=== PATIENT | female | born 1995 | race Caucasian/White ===

== ENCOUNTER 2017-07-30 21:52 | Emergency (ER) | payer OTHER ==
[2017-07-30 22:09] VITALS: BP 130/58; PULSE 107; TEMP 98.4; BMI 29.0
[2017-07-31] MEDS ORDERED: diazePAM 5 MG TABLET PO ONE (00:33)
[2017-07-31] MEDS ORDERED: diazePAM 5 MG TABLET ONE (00:41)
[2017-07-31] MEDS ORDERED: KETOROLAC TROMETHAMINE 60 MG/2 ML VIAL ONE (01:00)
[2017-07-31] MEDS ORDERED: KETOROLAC TROMETHAMINE 60 MG/2 ML VIAL IM ONE (01:00)
--- NOTE | 2017-07-31 01:14 | PDOC ---
History of Present Illness - General Chief Complaint: Pain, Acute Stated Complaint: NECK PAIN Time Seen by Provider: 07/31/17 00:16 - History of Present Illness Initial Comments: 07/31/17 01:13 CHIEF COMPLAINT: neck pain HISTORY OF PRESENT ILLNESS: 22 yo F with no significant PMH presents to ED with sudden onset L sided neck pain. Patient reports "it started a little before I went to college around 6 pm and then it got really bad when I was at school, and then I couldn't move my neck because it hurts so bad." She denies any recent trauma but does report slipping and falling two years ago and had an injury to her neck at that time. Patient reports the pain is 10/10 and that she can not even get out of her wheelchair and that she cannot remove her hand from the back of her neck due to pain. No recent travel or sick contacts. PAST MEDICAL HISTORY: Denies past medical history FAMILY HISTORY: Denies SOCIAL HISTORY: Denies tobacco, alcohol, illicit drug use. SURGICAL HISTORY: Denies ALLERGIES: No known drug allergies REVIEW OF SYSTEMS General/Constitutional: Denies fever or chills. Denies weakness, weight change. HEENT: Denies change in vision. Denies ear pain or discharge. Denies sore throat. Cardiovascular: Denies chest pain or shortness of breath. Respiratory: Denies cough, wheezing, or hemoptysis. Gastrointestinal: Denies nausea, vomiting, diarrhea or constipation. Denies rectal bleeding. Genitourinary: Denies dysuria, frequency, or change in urination. Musculoskeletal: Neck pain. Denies joint or muscle swelling or pain. Denies neck or back pain. Skin and breasts: Denies rash or easy bruising. Neurologic: Denies headache, vertigo, loss of consciousness, or loss of sensation. PHYSICAL EXAM General Appearance: Tearful, uncomfortable appearing. HEENT: EOMI, PERRLA, normal ENT inspection, normal voice, TMs normal, pharynx normal. No conjunctival pallor. No photophobia, scleral icterus. Neck: Patient with head tilted to R side secondary to pain to left posterior neck. Patient with limited ROM to neck secondary to pain. Trachea midline. Respiratory/Chest: Lungs CTAB. Cardiovascular: RRR. S1, S2. Gastrointestinal/Abdominal: Normal bowel sounds. Abdomen soft, non-distended. No tenderness or rebound tenderness. No organomegaly, pulsatile mass, guarding , hernia, hepatomegaly, splenomegaly. Musculoskeletal/Extremities: Normal inspection. FROM of all extremities, normal capillary refill. Pelvis Stable. No CVA tenderness. No tenderness to extremities, pedal edema, swelling, erythema or deformity. Integumentary: Appropriate color, dry, warm. No cyanosis, erythema, jaundice or rash Neurologic: microbiological lab technician II-XII intact. Fully oriented, alert. Appropriate mood/affect. Motor strength 5/5. No appreciable EOM palsy, facial droop or sensory deficit. Past History - Past Medical History Allergies/Adverse Reactions: Allergies Allergy/AdvReac Type Severity Reaction Status Date / Time No Known Allergies Allergy Verified 07/30/17 22:10 Home Medications: Ambulatory Orders Cyclobenzaprine HCl 7.5 mg PO TID PRN #15 tablet 07/31/17 Diclofenac Sodium [Voltaren -] 50 mg PO BID #14 tablet. 07/31/17 COPD: No Other medical history: neck injury with right arm weakness. - Suicide/Smoking/Psychosocial Hx Smoking History: Never smoked *Physical Exam - Vital Signs Last Vital Signs Temp Pulse Resp BP Pulse Ox 98.4 F 107 H 20 130/58 100 07/30/17 22:07 07/30/17 22:07 07/30/17 22:07 07/30/17 22:07 07/30/17 22:07 ED Treatment Course - LABORATORY CBC & Chemistry Diagram: 07/31/17 02:20 07/31/17 02:20 - Medications Given in the ED: ED Medications Discontinued Medications Generic Name Dose Route Start Last Admin Trade Name Freq PRN Reason Stop Dose Admin Diazepam 10 mg 07/31/17 00:33 07/31/17 00:40 Valium - PO 07/31/17 00:34 10 mg ONCE ONE Administration Medical Decision Making - Medical Decision Making 07/31/17 01:16 22 yo F with no significant PMH presents to ED with sudden onset L sided neck pain. -Toradol, Valium *DC/Admit/Observation/Transfer Diagnosis at time of Disposition: Neck pain on left side - Discharge Dispostion Disposition: HOME Condition at time of disposition: Stable Admit: No - Prescriptions Prescriptions: Cyclobenzaprine HCl 7.5 mg PO TID PRN #15 tablet PRN Reason: Muscle Spasms Diclofenac Sodium [Voltaren -] 50 mg PO BID #14 tablet.dr - Referrals Referrals: Stephen Todd MD [Primary Care Provider] - Srinivasan Serra MD [Staff Physician] - Watson Craven MD [Staff Physician] - - Patient Instructions Printed Discharge Instructions: DI for Neck Sprain Additional Instructions: Please take medications as prescribed. Do NOT drink alcohol, drive, or operate machinery while taking cyclobenzaprine. Follow up with neurology and orthopedics by the end of this week. If you develop any new pain, weakness, change in vision, or any new or worsening symptoms, please return to the ER. - Post Discharge Activity Forms/Work/School Notes: Back to Work
[2017-07-31] MEDS ORDERED: morphine CARPU-JECT 2 MG/1 ML DISP.SYRIN IVPUSH ONE (02:34)
[2017-07-31] MEDS ORDERED: SODIUM CHLORIDE 0.9% 500 ML INFUS.BAG IV ONE (02:35)
[2017-07-31 02:54] LABS: BASO % 0.8 % (0-2.0); EOS % 0.6 % (0-4.5); HEMATOCRIT 40.6 % (32.4-45.2); HEMOGLOBIN 13.9 GM/dL (10.7-15.3); LYMPH % 18.2 % (8-40); MCH 28.9 pg (25.7-33.7); MCHC 34.1 g/dl (32.0-36.0); MEAN CELL VOLUME 84.7 fl (80-96); MEAN PLT VOLUME 8.3 fl (7.5-11.1); MONO % 7.5 % (3.8-10.2); NEUT % 72.9 % (42.8-82.8); PLATELET COUNT 206 K/MM3 (134-434); RDW 13.1 % (11.6-15.6); WHITE BLOOD COUNT 9.7 K/mm3 (4.0-10.0)
[2017-07-31] MEDS ORDERED: MORPHINE SULFATE 10 MG/1 ML *VIAL ONE (02:55)
[2017-07-31 03:21] LABS: ALBUMIN 4.1 g/dl (3.4-5.0); ANION GAP 11 (8-16); BILIRUBIN,TOTAL 0.4 mg/dL (0.2-1.0); BLOOD UREA NITROGEN 10 mg/dL (7-18); CALCIUM 9.5 mg/dL (8.5-10.1); CHLORIDE 100 mmol/L (98-107); CO2 27 mmol/L (21-32); CREATININE 0.7 mg/dL (0.55-1.02); GLUCOSE,RANDOM 87 mg/dL (74-106); POTASSIUM 3.9 mmol/L (3.5-5.1); SGOT/AST 22 U/L (15-37); SGPT/ALT 33 U/L (12-78); SODIUM 138 mmol/L (136-145); TOT PROT 7.7 g/dl (6.4-8.2)
[2017-07-31 03:22] LABS: ALK PHOS 67 U/L (45-117)
== END 2017-07-31 05:01 | disposition home or self-care (01) ==
LOC: JER 21:52
PROC: 3E0233Z Introduction of Anti-inflammatory into Muscle, Percutaneous Approach (ICD-10-PCS; principal; 2017-07-30)
PROC: 3E033NZ Introduction of Analgesics, Hypnotics, Sedatives into Peripheral Vein, Percutaneous Approach (ICD-10-PCS; 2017-07-30)
DX: S19.89XA Other specified injuries of other specified part of neck, initial encounter (principal); W19.XXXA Unspecified fall, initial encounter; Y93.89 Activity, other specified; Y92.89 Other specified places as the place of occurrence of the external cause
CPT/HCPCS: 36415; 80053; 84703; 85025; 99281-25

== ENCOUNTER 2017-12-19 18:13 | Emergency (ER) | payer OTHER ==
[2017-12-19 18:31] VITALS: BP 122/86; PULSE 95; TEMP 97.4; BMI 32.6
--- NOTE | 2017-12-19 18:31 | PDOC ---
Rapid Medical Evaluation Time Seen by Provider: 12/19/17 18:28 Medical Evaluation: Allergies Allergy/AdvReac Type Severity Reaction Status Date / Time No Known Allergies Allergy Verified 07/30/17 22:10 12/19/17 18:28 I have performed a brief in-person evaluation of this patient . The patient presents with a chief complaint of: ?abscess to L axilla x 3 weeks. Seen pmd 2 weeks ago and was given 1 dose of "abx" in office and no rx per pt. No I&D done. H/o hypothyroid, on meds Pertinent physical exam findings:2x1cm induration to L axilla, ?fluctuant, no erythema I have ordered the following:nothing The patient will proceed to the ED for further evaluation. Discharge Disposition - Diagnosis Axillary mass Qualifiers: Laterality: left Qualified Code(s): R22.32 - Localized swelling, mass and lump , left upper limb - Referrals - Patient Instructions - Post Discharge Activity
[2017-12-19] MEDS ORDERED: LIDOCAINE HCL 1%, 10 MG/ML (50 mL VIAL) SQ ONE (18:55)
--- NOTE | 2017-12-19 18:57 | PDOC ---
History of Present Illness - General Chief Complaint: Abscess Boil Stated Complaint: CYST Time Seen by Provider: 12/19/17 18:28 - History of Present Illness Initial Comments: 22-year-old female with past medical history significant for hypothyroidism presents for evaluation of a painful tender area under her left axilla. She states she's been there for weeks but got worse today. Her associated symptoms besides localized pain to the area. 12/19/17 18:55 Past History - Past Medical History Allergies/Adverse Reactions: Allergies Allergy/AdvReac Type Severity Reaction Status Date / Time No Known Allergies Allergy Verified 12/19/17 18:28 Home Medications: Ambulatory Orders Cephalexin [Keflex] 500 mg PO QID #40 capsule 12/19/17 Cephalexin [Keflex] 500 mg PO QID #40 capsule 12/19/17 Cephalexin [Keflex] 500 mg PO QID #40 capsule 12/19/17 Ibuprofen [Motrin -] 600 mg PO TID #30 tablet 12/19/17 Ibuprofen [Motrin -] 600 mg PO TID #30 tablet 12/19/17 Levothyroxine [Synthroid -] 50 mcg PO DAILY 12/19/17 Sulfamethoxazole/Trimethoprim [Bactrim Ds -] 1 tab PO BID #14 tablet 12/19/17 Sulfamethoxazole/Trimethoprim [Bactrim Ds -] 1 tab PO BID #14 tablet 12/19/17 Sulfamethoxazole/Trimethoprim [Bactrim Ds -] 1 tab PO BID #14 tablet 12/19/17 COPD: No Thyroid Disease: Yes (HYPOTHYROID) - Suicide/Smoking/Psychosocial Hx Smoking History: Never smoked Review of Systems - Review of Systems Integumentary: Yes: See HPI, Lumps All Other Systems: Reviewed and Negative *Physical Exam - Vital Signs Last Vital Signs Temp Pulse Resp BP Pulse Ox 97.4 F L 95 H 17 122/86 99 12/19/17 18:29 12/19/17 18:29 12/19/17 18:29 12/19/17 18:29 12/19/17 18:29 - Physical Exam Comments: There is a mildly erythematous tender indurated and fluctuant area on the left axilla about 1 cm in circumference. The surrounding skin is otherwise normal color and temperature. Upper Neal compartments are soft and nontender and there are no gross sensory or motor deficits. 12/19/17 18:56 Medical Decision Making - Medical Decision Making Chest left axilla which I will I&D today. 12/19/17 18:57 12/19/17 19:29 The area was aseptically prepped and anesthetized with 15-20 mL of 1% lidocaine without epinephrine. The area was then prepped again sterilely draped over 1 cm incision was made in the axilla culture was taken purulent areas were deloculated and the area was packed with quarter-inch iodoform a dry sterile dressing was placed. This was tolerated well without complication *DC/Admit/Observation/Transfer Diagnosis at time of Disposition: Abscess Axillary mass Qualifiers: Laterality: left Qualified Code(s): R22.32 - Localized swelling, mass and lump , left upper limb - Discharge Dispostion Disposition: HOME Condition at time of disposition: Stable Decision to Admit order: No - Prescriptions Prescriptions: Cephalexin [Keflex] 500 mg PO QID #40 capsule Sulfamethoxazole/Trimethoprim [Bactrim Ds -] 1 tab PO BID #14 tablet - Referrals Referrals: Brodie Cowart MD [Primary Care Provider] - - Patient Instructions Printed Discharge Instructions: DI for Incision and Drainage of a Skin Abscess Additional Instructions: Return to the emergency room in 2 days for packing removal and wound check. In the meantime keep the area clean and dry for 48 hours do not take a shower. Take the antibiotics as directed. I've also called given some pain medication which should help with her discomfort. Return to the emergency sooner should problems develop. - Post Discharge Activity
[2017-12-19] MEDS ORDERED: LIDOCAINE HCL 1%, 10 MG/ML (20ML VIAL) ONE (19:05)
== END 2017-12-19 19:34 | disposition home or self-care (01) ==
LOC: JERFT 18:13
PROC: 0X950ZZ Drainage of Left Axilla, Open Approach (ICD-10-PCS; principal; 2017-12-19)
DX: L02.412 Cutaneous abscess of left axilla (principal)
CPT/HCPCS: 10060; 87070; 87205; 99281-25

== ENCOUNTER 2017-12-21 16:19 | Emergency (ER) | payer OTHER ==
[2017-12-21 16:31] VITALS: BP 132/76; PULSE 86; TEMP 98.7; BMI 32.6
--- NOTE | 2017-12-21 17:04 | PDOC ---
History of Present Illness - General Chief Complaint: Revisit,Wound Recheck Stated Complaint: REVIST Time Seen by Provider: 12/21/17 16:38 - History of Present Illness Initial Comments: 22-year-old female presents for evaluation after I&D of an abscess in the left axilla. She's had no symptoms except localized pain. 12/21/17 17:02 Past History - Past Medical History Allergies/Adverse Reactions: Allergies Allergy/AdvReac Type Severity Reaction Status Date / Time No Known Allergies Allergy Verified 12/21/17 16:31 Home Medications: Ambulatory Orders Cephalexin [Keflex] 500 mg PO QID #40 capsule 12/19/17 Ibuprofen [Motrin -] 600 mg PO TID #30 tablet 12/19/17 Levothyroxine [Synthroid -] 50 mcg PO DAILY 12/19/17 Sulfamethoxazole/Trimethoprim [Bactrim Ds -] 1 tab PO BID #14 tablet 12/19/17 COPD: No Thyroid Disease: Yes (HYPOTHYROID) - Suicide/Smoking/Psychosocial Hx Smoking History: Never smoked Have you smoked in the past 12 months: No Information on smoking cessation initiated: No Hx Alcohol Use: No Drug/Substance Use Hx: No Review of Systems - Review of Systems Integumentary: Yes: See HPI All Other Systems: Reviewed and Negative *Physical Exam - Vital Signs Last Vital Signs Temp Pulse Resp BP Pulse Ox 98.7 F 86 18 132/76 100 12/21/17 16:28 12/21/17 16:28 12/21/17 16:28 12/21/17 16:28 12/21/17 16:28 - Physical Exam Comments: The abscess is not fluctuant anymore the incision is clean and dry. The packing was removed. There is no purulence the visualized incision. Wet-to-dry dressing was placed. This was tolerated well. 12/21/17 17:02 *DC/Admit/Observation/Transfer Diagnosis at time of Disposition: Abscess packing removal - Discharge Dispostion Disposition: HOME Condition at time of disposition: Stable Decision to Admit order: No - Referrals Referrals: Brodie Cowart MD [Primary Care Provider] - - Patient Instructions Additional Instructions: Return to the emergency room should he develop any fever chills or night sweats. Continue taking the antibiotics as directed. As shown today in the emergency room, you should do wet-to-dry dressing changes twice a day. I will see within 2 days for wound check. - Post Discharge Activity
== END 2017-12-21 17:16 | disposition home or self-care (01) ==
LOC: JERFT 16:19
DX: Z48.817 Encounter for surgical aftercare following surgery on the skin and subcutaneous tissue (principal); Z48.01 Encounter for change or removal of surgical wound dressing
CPT/HCPCS: 99281-25

== ENCOUNTER 2017-12-24 15:57 | Emergency (ER) | payer OTHER ==
--- NOTE | 2017-12-24 16:03 | PDOC ---
Rapid Medical Evaluation Time Seen by Provider: 12/24/17 16:02 Medical Evaluation: Allergies Allergy/AdvReac Type Severity Reaction Status Date / Time No Known Allergies Allergy Verified 12/21/17 16:31 I have performed a brief in-person evaluation of this patient. The patient presents with a chief complaint of: wound check left axilla Pertinent physical exam findings: none I have ordered the following: nothing The patient will proceed to the ED for further evaluation. Discharge Disposition - Diagnosis Wound check, abscess - Referrals - Patient Instructions - Post Discharge Activity
[2017-12-24 16:05] VITALS: BP 114/79; PULSE 88; TEMP 98.3; BMI 32.6
--- NOTE | 2017-12-24 16:32 | PDOC ---
History of Present Illness - General Chief Complaint: Revisit,Wound Recheck Stated Complaint: WOUND CHECK REVISIT Time Seen by Provider: 12/24/17 16:02 - History of Present Illness Initial Comments: 12/24/17 16:31 12/24/17 16:36 22-year-old female presents for reevaluation of left axilla abscess I&D which was done last week this is her second wound check she's had no complaints except localized soreness. No other associated symptoms. She continues take her antibiotics. Past History - Past Medical History Allergies/Adverse Reactions: Allergies Allergy/AdvReac Type Severity Reaction Status Date / Time No Known Allergies Allergy Verified 12/24/17 16:02 Home Medications: Ambulatory Orders Cephalexin [Keflex] 500 mg PO QID #40 capsule 12/19/17 Ibuprofen [Motrin -] 600 mg PO TID #30 tablet 12/19/17 Levothyroxine [Synthroid -] 50 mcg PO DAILY 12/19/17 Sulfamethoxazole/Trimethoprim [Bactrim Ds -] 1 tab PO BID #14 tablet 12/19/17 Asthma: Yes COPD: No DVT: No Thyroid Disease: Yes (HYPOTHYROID) - Suicide/Smoking/Psychosocial Hx Smoking History: Never smoked Have you smoked in the past 12 months: No Information on smoking cessation initiated: No Hx Alcohol Use: No Drug/Substance Use Hx: No Substance Use Type: None Review of Systems - Review of Systems All Other Systems: Reviewed and Negative *Physical Exam - Vital Signs Last Vital Signs Temp Pulse Resp BP Pulse Ox 98.3 F 88 18 114/79 100 12/24/17 16:03 12/24/17 16:03 12/24/17 16:03 12/24/17 16:03 12/24/17 16:03 - Physical Exam Comments: 12/24/17 16:31 12/24/17 16:32 12/24/17 16:37 Left axilla normal skin color and temperature there is some mild ecchymosis around the area of the abscess. The wound is now closed. And looks very well. Medical Decision Making - Medical Decision Making No further wound management is necessary at this time. 12/24/17 16:31 12/24/17 16:37 *DC/Admit/Observation/Transfer Diagnosis at time of Disposition: Wound check, abscess - Discharge Dispostion Disposition: HOME Condition at time of disposition: Stable Decision to Admit order: No - Referrals Referrals: Brodie Cowart MD [Primary Care Provider] - - Patient Instructions Additional Instructions: Return to the emergency room should her abscess return. In the meantime keep clean with soap and water. Do not shave the area until the back and blue goes away. Continue the antibiotics as directed and finish the entire course. - Post Discharge Activity
== END 2017-12-24 16:44 | disposition home or self-care (01) ==
LOC: JERFT 15:57
DX: Z48.817 Encounter for surgical aftercare following surgery on the skin and subcutaneous tissue (principal)
CPT/HCPCS: 99281-25

== ENCOUNTER 2018-11-07 10:41 | Emergency (ER) | payer OTHER | END 2018-11-07 11:29 | disposition home or self-care (01) | LOC: JER 10:41 ==

== ENCOUNTER 2018-11-09 09:49 | Emergency (ER) | payer OTHER ==
[2018-11-09 10:04] VITALS: BP 121/72; PULSE 86; TEMP 98.5; BMI 67.0
--- NOTE | 2018-11-09 11:57 | PDOC ---
*Physical Exam - Vital Signs Last Vital Signs Temp Pulse Resp BP Pulse Ox 98.5 F 86 18 121/72 100 11/09/18 10:01 11/09/18 10:01 11/09/18 10:01 11/09/18 10:01 11/09/18 10:01 Medical Decision Making - Medical Decision Making 11/09/18 11:57 Pt seen by the Advanced Practice Provider under my direct supervision Ancillary studies reviewed I agree with plan as outlined by the Advanced Practice Provider JUANY Garcia *DC/Admit/Observation/Transfer Diagnosis at time of Disposition: Abscess, Headache - Discharge Dispostion Disposition: HOME Condition at time of disposition: Stable - Referrals Referrals: Brodie Cowart MD [Primary Care Provider] - - Patient Instructions Printed Discharge Instructions: DI for Incision and Drainage of a Skin Abscess Additional Instructions: You have an abscess and cellulitis. This is a skin infection. Your abscess was drained today Please continue to take the Bactrim and Keflex twice a day for one week. Please take all the antibiotics even if you feel better. Please avoid shaving the skin around the area of redness. You may take Tylenol or Motrin as needed for pain. Follow the dosing instruction on the bottle Return to the ER in two days to have the packing removed Your head CT is normal You are most likely having a concussion. Follow up with your primary care doctor this week Return to the emergency department if you have worsening redness, fevers, increasing pain, or have any changes in your symptoms. - Post Discharge Activity Forms/Work/School Notes: Back to Work
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
== END 2018-11-09 15:39 | disposition home or self-care (01) ==
LOC: JER 09:49
PROC: 0X950ZZ Drainage of Left Axilla, Open Approach (ICD-10-PCS; principal; 2018-11-09)
DX: L02.412 Cutaneous abscess of left axilla (principal); E03.9 Hypothyroidism, unspecified; Z87.09 Personal history of other diseases of the respiratory system
CPT/HCPCS: 10060; 70450-TC; 84703; 87070; 87205; 99282-25

== ENCOUNTER 2018-11-11 15:07 | Emergency (ER) | payer OTHER | END 2018-11-11 16:51 | disposition home or self-care (01) | LOC: JERFT 15:07 ==

== ENCOUNTER 2018-12-25 18:00 | Emergency (ER) | payer OTHER ==
[2018-12-25 18:11] VITALS: BP 132/88; PULSE 81; TEMP 98; BMI 28.8
--- NOTE | 2018-12-25 18:12 | PDOC ---
Rapid Medical Evaluation Medical Evaluation: Allergies Allergy/AdvReac Type Severity Reaction Status Date / Time No Known Allergies Allergy Verified 12/25/18 18:08 12/25/18 18:09 I have performed a brief in-person evaluation of this patient. The patient presents with a chief complaint of: abscess to L axilla, recurrent Pertinent physical exam findings:stable, defer to ED provider I have ordered the following:nothing The patient will proceed to the ED for further evaluation. Discharge Disposition - Diagnosis Axillary abscess - Referrals - Patient Instructions - Post Discharge Activity
--- NOTE | 2018-12-25 18:37 | PDOC ---
History of Present Illness - General Chief Complaint: Abscess Boil Stated Complaint: BOIL/ABSCESS Time Seen by Provider: 12/25/18 18:09 History Source: Patient - History of Present Illness Initial Comments: 12/25/18 18:34 Chief complaint: Axilla pain, discharge Patient is a 23-year-old female with history of recurrent axillary abscess, last treated in November. Patient states that she's been having pain, discharge from her left axilla for 2 weeks, no fever, has not been able to see a surgeon due to her work schedule. GENERAL/CONSTITUTIONAL: No fever, weakness. dizziness HEAD, EYES, EARS, NOSE AND THROAT: No change in vision. No ear pain or discharge. No sore throat. CARDIOVASCULAR: No chest pain RESPIRATORY: No shortness of breath or cough GASTROINTESTINAL: No pain, nausea, vomiting, diarrhea or constipation GENITOURINARY: No dysuria MUSCULOSKELETAL: No neck or back pain SKIN: No rash NEUROLOGIC: No headache, vertigo, loss of consciousness, or loss of sensation. GENERAL: The patient is awake, alert, and fully oriented, in no acute distress. HEAD: Normal with no signs of trauma. EYES: Pupils equal, round and reactive to light, sclera anicteric, conjunctiva clear. ENT: pharynx: no erythema, no exudate, uvula midline NECK: supple CHEST: clear, nontender, rr ABD: soft, nontender BACK: no tenderness or signs of injury EXTREMITIES: Axilla, with minimal erythema, small amount of drainage, no palpable abscess, swelling or fluctuant area. Most full range of motion, somewhat limited by discomfort, neurovascular intact. rest of extremities, Normal range of motion, no edema. NEUROLOGICAL: Normal speech, normal gait. SKIN: Warm, Dry 12/25/18 18:47 Past History - Past Medical History Allergies/Adverse Reactions: Allergies Allergy/AdvReac Type Severity Reaction Status Date / Time No Known Allergies Allergy Verified 12/25/18 18:08 Home Medications: Ambulatory Orders Cephalexin [Keflex] 500 mg PO BID 7 Days #14 capsule 11/07/18 Ibuprofen 800 mg PO Q8H PRN #20 tablet 11/07/18 Mupirocin Ointment [Bactroban 2% Ointment -] 1 applic TP BID #1 tube 11/07/18 Sulfamethoxazole/Trimethoprim [Bactrim Ds -] 1 tab PO BID #14 tablet 11/07/18 Levothyroxine [Synthroid -] 50 mcg PO DAILY 11/09/18 Cephalexin [Keflex] 1,000 mg PO BID #28 capsule 12/25/18 Sulfamethoxazole/Trimethoprim [Bactrim Ds Tablet] 1 each PO BID #14 tablet 12/25 Asthma: Yes COPD: No DVT: No Thyroid Disease: Yes (HYPOTHYROID) - Immunization History Immunization Up to Date: No - Suicide/Smoking/Psychosocial Hx Smoking History: Never smoked Have you smoked in the past 12 months: No Hx Alcohol Use: No Drug/Substance Use Hx: No Substance Use Type: None *Physical Exam - Vital Signs Last Vital Signs Temp Pulse Resp BP Pulse Ox 98.0 F 81 18 132/88 99 12/25/18 18:09 12/25/18 18:09 12/25/18 18:09 12/25/18 18:09 12/25/18 18:09 Medical Decision Making - Medical Decision Making 12/25/18 18:40 Healthy 23-year-old female with recurrent abscesses under left axilla, last seen in November, EMR, microbiology, no sensitivities found, patient got better last time has not had time to follow up with surgeon. No abscess to drain , patient has small amount of drainage from opening, mild cellulitis. Will put on Keflex and Bactrim, encouraged patient to follow up with surgeon. Discussed issues, findings, results, applicable medications and treatments and follow-up. All these were understood and all questions were answered *DC/Admit/Observation/Transfer Diagnosis at time of Disposition: Cellulitis and abscess of upper extremity - Discharge Dispostion Disposition: HOME Condition at time of disposition: Stable Decision to Admit order: No - Prescriptions Prescriptions: Cephalexin [Keflex] 1,000 mg PO BID #28 capsule Sulfamethoxazole/Trimethoprim [Bactrim Ds Tablet] 1 each PO BID #14 tablet - Referrals Referrals: Hany Sandhu MD [Staff Physician] - - Patient Instructions Additional Instructions: Clean with soap and water 2-3 times daily, apply bacitracin and dressing Take Keflex and Bactrim as prescribed Take acidophilus to prevent stomach upset and yeast infection Have her reevaluated if redness, pus, fever or getting worse it is very important for you to follow-up with the surgeon as this will keep re- occurring. Return to the ER if you find that you develop worse swelling in that area - Post Discharge Activity
== END 2018-12-25 18:51 | disposition home or self-care (01) ==
LOC: JERFT 18:00
DX: L02.412 Cutaneous abscess of left axilla (principal); E03.9 Hypothyroidism, unspecified
CPT/HCPCS: 99281-25

== ENCOUNTER 2019-03-23 10:40 | Emergency (ER) | payer OTHER ==
[2019-03-23 11:20] VITALS: BP 105/65; PULSE 72; TEMP 98.4; BMI 31.1
[2019-03-23] MEDS ORDERED: hydrOXYzine PAMOATE 25 MG CAPSULE (FP) PO ONE (13:28)
[2019-03-23] MEDS ORDERED: LEVOTHYROXINE NA 50 MCG TABLET (FP) PO ONE (13:57)
--- NOTE | 2019-03-23 13:57 | PDOC ---
History of Present Illness - General Chief Complaint: Weakness Stated Complaint: CHEST PAIN/ SOB Time Seen by Provider: 03/23/19 12:51 History Source: Patient Exam Limitations: Clinical Condition - History of Present Illness Initial Comments: 03/23/19 14:07pm Patient with past medical history of anxiety, hypothyroidism noncompliant with head central medication for a month now, presented with complaint of shortness of breath, chest tightness radiating up her left side of neck, irregular heartbeat. Patient not on medication for anxiety. Patient reports symptoms started this morning when she went to work. Denies dizziness, headache, nausea , vomiting. Patient reports she has not been taking her Synthroid medication for a month now because she ran out. Denies any other symptoms Is this a multiple visit Asthma Patient?: No Timing/Duration: 4-6 hours Past History - Past Medical History Allergies/Adverse Reactions: Allergies Allergy/AdvReac Type Severity Reaction Status Date / Time No Known Allergies Allergy Verified 03/23/19 11:21 Home Medications: Ambulatory Orders Cephalexin [Keflex] 500 mg PO BID 7 Days #14 capsule 11/07/18 Ibuprofen 800 mg PO Q8H PRN #20 tablet 11/07/18 Mupirocin Ointment [Bactroban 2% Ointment -] 1 applic TP BID #1 tube 11/07/18 Sulfamethoxazole/Trimethoprim [Bactrim Ds -] 1 tab PO BID #14 tablet 11/07/18 Levothyroxine [Synthroid -] 50 mcg PO DAILY 11/09/18 Cephalexin [Keflex] 1,000 mg PO BID #28 capsule 12/25/18 Sulfamethoxazole/Trimethoprim [Bactrim Ds Tablet] 1 each PO BID #14 tablet 12/25 Asthma: Yes CVA: Yes COPD: No DVT: No Thyroid Disease: Yes (HYPOTHYROID) - Immunization History Immunization Up to Date: No - Psycho Social/Smoking Cessation Hx Smoking History: Never smoked Have you smoked in the past 12 months: No Hx Alcohol Use: No Drug/Substance Use Hx: No Substance Use Type: None Review of Systems - Review of Systems Able to Perform ROS?: Yes Is the patient limited Greek proficient: No Constitutional: No: Fever, Malaise, Weakness HEENTM: No: Symptoms Reported, See HPI, Eye Pain, Blurred Vision, Tearing, Recent change in vision, Double Vision, Cataracts, Ear Pain, Ocular Prothesis, Ear Discharge, Nose Pain, Nose Congestion, Tinnitus, Nose Bleeding, Hearing Loss , Throat Pain, Throat Swelling, Mouth Pain, Dental Problems, Difficulty Swallowing, Mouth Swelling, Other Respiratory: Yes: Symptoms reported, See HPI, Cough. No: Orthopnea, Shortness of Breath, SOB with Exertion, SOB at Rest, Stridor, Wheezing, Productive cough, Hemoptysis, Other Cardiac (ROS): Yes: Symptoms Reported, See HPI, Irregular Heart Rate. No: Chest Pain, Edema, Lightheadedness, Palpitations, Syncope, Chest Tightness, Other ABD/GI: No: Nausea, Vomiting Musculoskeletal: No: Symptoms Reported Integumentary: No: Symptoms Reported Neurological: No: Symptoms reported, Headache, Numbness, Tingling, Weakness, Dizziness All Other Systems: Reviewed and Negative *Physical Exam - Vital Signs Last Vital Signs Temp Pulse Resp BP Pulse Ox 98.4 F 72 18 105/65 100 03/23/19 11:15 03/23/19 11:15 03/23/19 11:15 03/23/19 11:15 03/23/19 11:15 - Physical Exam Comments: 03/23/19 13:56 GENERAL: Well developed, well nourished. Awake and alert. No acute distress. HEENT: Normocephalic, atraumatic. PERRLA, EOMI. No conjunctival pallor. Sclera are non- icteric. Moist mucous membranes. Oropharynx is clear. NECK: Supple. Full ROM. No JVD. Carotid pulses 2+ and symmetric, without bruits. No thyromegaly. No lymphadenopathy. CARDIOVASCULAR: Regular rate and rhythm. No murmurs, rubs, or gallops. Distal pulses are 2+ and symmetric. PULMONARY: No evidence of respiratory distress. Lungs clear to auscultation bilaterally. No wheezing, rales or rhonchi. ABDOMINAL: Soft. Non-tender. Non-distended. No rebound or guarding. No organomegaly. Normoactive bowel sounds. MUSCULOSKELETAL Normal range of motion at all joints. No bony deformities or tenderness. No CVA tenderness. EXTREMITIES: No cyanosis. No clubbing. No edema. No calf tenderness. SKIN: Warm and dry. Normal capillary refill. No rashes. No jaundice. NEUROLOGICAL: Alert, awake, appropriate. Cranial nerves 2-12 intact. No deficits to light touch in face, upper extremities and lower extremities. No motor deficits in the in face, upper extremities and lower extremities. Normal speech. Gait is normal without ataxia. PSYCHIATRIC: Cooperative. Good eye contact. Appropriate mood and affect. General Appearance: Yes: Nourished, Appropriately Dressed. No: Apparent Distress ED Treatment Course - LABORATORY CBC & Chemistry Diagram: 03/23/19 13:30 03/23/19 13:30 - RADIOLOGY Radiology Studies Ordered: Category Date Time Status CHEST PA & LAT [RAD] Stat Radiology 03/23/19 13:23 Ordered Medical Decision Making - Medical Decision Making 03/23/19 14:08 Patient with past medical history of anxiety, hypothyroidism noncompliant with head central medication for a month now, presented with complaint of shortness of breath, chest tightness radiating up her left side of neck, irregular heartbeat. Patient not on medication for anxiety. Patient reports symptoms started this morning when she went to work. Denies dizziness, headache, nausea , vomiting. Patient reports she has not been taking her Synthroid medication for a month now because she ran out. Denies any other symptoms Clinical exam unremarkable with normal myocardial lung exam. Symptoms likely anxiety versus symptoms from hypothyroidism versus less likely cardiogenic symptoms. CBC, CMP and cardiac profile lab ordered. EKG shows normal sinus rhythm. Checks x-ray ordered to rule out acute chest pathology. Thyroid profile labs ordered. 1 dose of Vistaril 25 mg p.o. ordered for anxiety and home Synthroid medication 50 mg p.o. ordered for hypothyroidism. Treat based on lab and imaging results 03/23/19 16:05 CBC, CMP labs unremarkable. cardiac profile negative. hcg negative. Patient walked out while waiting to get chest x-rays and could not be located. Discharge - Discharge Information Problems reviewed: Yes Clinical Impression/Diagnosis: Anxiety, Chest pain in adult Condition: Stable Disposition: ELOPED - Admission No - Follow up/Referral Referrals: Brodie Cowart MD [Primary Care Provider] - - Patient Discharge Instructions - Post Discharge Activity
[2019-03-23 13:59] LABS: BASO % 0.3 % (0-2.0); EOS % 0.9 % (0-4.5); HEMATOCRIT 40.1 % (32.4-45.2); HEMOGLOBIN 13.6 GM/dL (10.7-15.3); LYMPH % 20.5 % (8-40); MCHC 33.9 g/dl (32.0-36.0); MEAN CELL VOLUME 85.6 fl (80-96); MEAN PLT VOLUME 8.3 fl (7.5-11.1); MONO % 6.3 % (3.8-10.2); PLATELET COUNT 196 K/MM3 (134-434); RBC 4.69 M/mm3 (3.60-5.2); RDW 13.3 % (11.6-15.6); WHITE BLOOD COUNT 6.8 K/mm3 (4.0-10.0)
[2019-03-23 14:20] LABS: EPI CELLS 7.7 /HPF (0-5/HPF); HYALINE CASTS 12 /lpf (0-8); PH,URINE 5.5 (5.0-8.0); URINE APPEARANCE CLOUDY; URINE BACTERIA 558.9 /hpf (NEGATIVE); URINE BILIRUBIN NEGATIVE (NEGATIVE); URINE COLOR ORANGE; URINE GLUCOSE (UA) NEGATIVE (NEGATIVE); URINE KETONE NEGATIVE (NEGATIVE); URINE LEUK ESTERASE 2+ (NEGATIVE); URINE NITRITE NEGATIVE (NEGATIVE); URINE PROTEIN 1+ (NEGATIVE); URINE RBC 512 /hpf (0-4); URINE UROBILINOGEN 0.2 mg/dL (0.2-1.0); URINE WBC 72 /hpf (0-5)
[2019-03-23 14:29] LABS: ALBUMIN 4.3 g/dl (3.4-5.0); BILIRUBIN,TOTAL 0.4 mg/dL (0.2-1); CALCIUM 9.4 mg/dL (8.5-10.1); CREATININE 0.7 mg/dL (0.55-1.3); POTASSIUM 3.9 mmol/L (3.5-5.1); TOT PROT 8.2 g/dl (6.4-8.2)
[2019-03-23 14:40] LABS: COCAINE, UR NEGATIVE ng/ml (CUTOFF=300); METHADONE, UR NEGATIVE ng/ml (CUTOFF=300); OPIATES, URI NEGATIVE ng/ml (CUTOFF=300); PHENCYCLIDINE,URINE NEGATIVE ng/ml (CUTOFF=25); URINE AMPHETAMINES NEGATIVE ng/ml (CUTOFF=500); URINE BARBITURATES NEGATIVE ng/ml (CUTOFF=200); URINE BENZODIAZEPINES NEGATIVE ng/ml (CUTOFF=200)
[2019-03-23] MEDS ORDERED: LEVOTHYROXINE NA 25 MCG TABLET (FP) ONE (15:06)
--- NOTE | 2019-03-23 15:50 | EKG ---
Test Reason : Blood Pressure : / mmHG Vent. Rate : 073 BPM Atrial Rate : 073 BPM P-R Int : 152 ms QRS Dur : 094 ms QT Int : 376 ms P-R-T Axes : 018 016 031 degrees QTc Int : 414 ms NORMAL SINUS RHYTHM NORMAL ECG NO PREVIOUS ECGS AVAILABLE Confirmed by Jose L Baron ([id number]) on 03/23/2019 3:50:09 PM Referred By: Confirmed By:Jose L Baron
== END 2019-03-23 16:00 | disposition left against medical advice (07) ==
LOC: JER 10:40
DX: F41.9 Anxiety disorder, unspecified (principal); R07.9 Chest pain, unspecified; E03.9 Hypothyroidism, unspecified; J45.909 Unspecified asthma, uncomplicated; Z86.73 Personal history of transient ischemic attack (TIA), and cerebral infarction without residual deficits
CPT/HCPCS: 36415; 80053; 80307; 81003; 82550; 84439; 84443; 84484; 84703; 85025; 93005; 93010; 99281-25

== ENCOUNTER 2020-01-01 14:15 | Emergency (ER) | payer OTHER ==
[2020-01-01 14:28] VITALS: BMI 30.4
[2020-01-01] MEDS ORDERED: SODIUM CHLORIDE 0.9% 500 ML INFUS.BAG IV ONE ×2 (15:21)
[2020-01-01] MEDS ORDERED: ONDANSETRON 4 MG/2 ML VIAL IVPUSH ONE (15:22)
[2020-01-01 15:59] LABS: BASO % 0.6 % (0-2.0); EOS % 0.6 % (0-4.5); HEMATOCRIT 41.5 % (32.4-45.2); HEMOGLOBIN 14.2 GM/dL (10.7-15.3); LYMPH % 15.1 % (8-40); MCH 29.2 pg (25.7-33.7); MCHC 34.2 g/dl (32.0-36.0); MEAN CELL VOLUME 85.5 fl (80-96); MEAN PLT VOLUME 8.3 fl (7.5-11.1); MONO % 8.7 % (3.8-10.2); PLATELET COUNT 201 K/MM3 (134-434); RBC 4.85 M/mm3 (3.60-5.2); RDW 13.4 % (11.6-15.6); WHITE BLOOD COUNT 9.2 K/mm3 (4.0-10.0)
[2020-01-01 16:28] LABS: ALBUMIN 4.2 g/dl (3.4-5.0); BILIRUBIN,TOTAL 0.5 mg/dL (0.2-1); BLOOD UREA NITROGEN 10.9 mg/dL (7-18); CALCIUM 9.5 mg/dL (8.5-10.1); CREATININE 0.7 mg/dL (0.55-1.3); POTASSIUM 3.6 mmol/L (3.5-5.1); TOT PROT 7.9 g/dl (6.4-8.2)
[2020-01-01 16:43] LABS: EPI CELLS >36 /uL (0-25.1); HYALINE CASTS 10 /uL (0-3.1); URINE APPEARANCE CLOUDY; URINE BACTERIA 3291 /uL (0-1359); URINE BILIRUBIN NEGATIVE (NEGATIVE); URINE COLOR YELLOW; URINE GLUCOSE (UA) NEGATIVE (NEGATIVE); URINE KETONE TRACE (NEGATIVE); URINE LEUK ESTERASE 1+ (NEGATIVE); URINE NITRITE NEGATIVE (NEGATIVE); URINE PROTEIN TRACE (NEGATIVE); URINE WBC 83 /uL (0-25.8)
[2020-01-01 17:33] LABS: URINE RBC 5 /uL (0-23.9)
--- NOTE | 2020-01-01 17:34 | PDOC ---
History of Present Illness - General Chief Complaint: Nausea/Vomiting Stated Complaint: VOMITING Time Seen by Provider: 01/01/20 15:08 History Source: Patient Exam Limitations: No Limitations - History of Present Illness Initial Comments: 01/01/20 17:31 24-year-old female history of hypothyroidism, anxiety complains of nausea, feeling lightheaded, nonbloody vomiting and nonbloody diarrhea since 1 AM today. Patient reports she went out last night and drank many drinks, mixed vodka and tequila. Also had salmon for dinner at approximately 8 PM. Patient states she is unable to tolerate liquids. Also smokes hookah, denies using illicit drugs. ROS: as above PE: GENERAL: Appears uncomfortable HEAD: NCAT EYES: Pupils equal, round and reactive to light, sclera anicteric, conjunctiva clear ENT: pharynx: no erythema, no exudate, uvula midline NECK: supple CHEST: nontender RESP: clear, no w/r/r CARDIO: rrr, no m/g/r ABD: +BS, soft, nontender, non distended BACK: no midline spinal ttp, no CVAT EXTREMITIES: Normal range of motion, no edema NEUROLOGICAL: Normal speech, normal gait SKIN: Warm, Dry Is this a multiple visit Asthma Patient?: No Past History - Medical History Allergies/Adverse Reactions: Allergies Allergy/AdvReac Type Severity Reaction Status Date / Time No Known Allergies Allergy Verified 03/23/19 11:21 Home Medications: Ambulatory Orders Levothyroxine [Synthroid -] 50 mcg PO DAILY 11/09/18 Levothyroxine [Synthroid -] 50 mcg PO DAILY #30 tablet 01/01/20 Asthma: Yes CVA: Yes (2018) COPD: No DVT: No Thyroid Disease: Yes (HYPOTHYROID) - Immunization History Immunization Up to Date: No - Psycho-Social/Smoking History Smoking History: Never smoked Have you smoked in the past 12 months: No - Substance Abuse Hx (Audit-C & DAST Scrn) How often the patient has a drink containing alcohol: Monthly or less How often the patient has six or more drinks on one occasion: Less than monthly Score: In Men: 4 or > Positive; In Women: 3 or > Positive: 2 Screen Result (Pos requires Nsg. Audit-10AR): Negative In the last yr the pt used illegal drug/Rx for NonMed reason: No Score: Yes response is considered Positive: 0 Screen Result (Positive result requires Nsg. DAST-10): Negative *Physical Exam - Vital Signs Last Vital Signs Temp Pulse Resp BP Pulse Ox 98.4 F 106 H 18 124/90 99 01/01/20 14:21 01/01/20 14:21 01/01/20 14:21 01/01/20 14:21 01/01/20 14:21 ED Treatment Course - LABORATORY CBC & Chemistry Diagram: 01/01/20 15:45 01/01/20 15:45 - ADDITIONAL ORDERS Additional order review: Laboratory Results 01/01/20 01/01/20 16:20 15:45 Sodium 139 Potassium 3.6 Chloride 106 Carbon Dioxide 23 Anion Gap 11 BUN 10.9 Creatinine 0.7 Est GFR (CKD-EPI)AfAm 142.54 Est GFR (CKD-EPI)NonAf 122.98 Random Glucose 98 Calcium 9.5 Total Bilirubin 0.5 AST 15 ALT 28 Alkaline Phosphatase 71 Total Protein 7.9 Albumin 4.2 Urine Color Yellow Urine Appearance Cloudy Urine pH 6.0 Ur Specific [place] 1.037 H Urine Protein Trace Urine Glucose (UA) Negative Urine Ketones Trace H Urine Blood Negative Urine Nitrite Negative Urine Bilirubin Negative Urine Urobilinogen 1.0 Ur Leukocyte Esterase 1+ H Urine WBC (Auto) 83 Urine Casts (Auto) 10 U Epithel Cells (Auto) >36 Urine Bacteria (Auto) 3291 01/01/20 15:45 RBC 4.85 MCV 85.5 MCHC 34.2 RDW 13.4 MPV 8.3 Neutrophils % 75.0 Lymphocytes % 15.1 D Monocytes % 8.7 Eosinophils % 0.6 Basophils % 0.6 - Medications Given in the ED: ED Medications Discontinued Medications Generic Name Dose Route Start Last Admin Trade Name Freq PRN Reason Stop Dose Admin Ondansetron HCl 4 mg 01/01/20 15:22 01/01/20 16:04 Zofran Injection IVPUSH 01/01/20 15:23 4 mg ONCE ONE Administration Sodium Chloride 1,000 ml 01/01/20 15:21 01/01/20 16:04 Normal Saline - IV 01/01/20 15:22 1,000 ml ONCE ONE Administration Medical Decision Making - Medical Decision Making 01/01/20 17:33 24-year-old female history of hypothyroidism, anxiety complains of nausea, feeling lightheaded, nonbloody vomiting and nonbloody diarrhea since 1 AM today. Patient reports she went out last night and drank many drinks, mixed vodka and tequila. Also had salmon for dinner at approximately 8 PM. Patient states she is unable to tolerate liquids. Also smokes hookah, denies using illicit drugs. Unremarkable lab Antiemetic IV fluid Reassess 01/01/20 17:40 Reports she ran out of levothyroxine 2 days ago Sent prescription to her pharmacy for a 30-day supply of levothyroxine 01/01/20 19:33 Reviewed labs Patient feels better after IV fluids and antiemetic Stable for discharge Discharge - Discharge Information Problems reviewed: Yes Clinical Impression/Diagnosis: Nausea vomiting and diarrhea Condition: Stable Disposition: HOME - Admission No - Additional Discharge Information Prescriptions: Levothyroxine [Synthroid -] 50 mcg PO DAILY #30 tablet - Follow up/Referral Referrals: Brodie Cowart MD [Primary Care Provider] - - Patient Discharge Instructions Additional Instructions: Rest, remain hydrated, follow-up with your doctor within 1 week - Post Discharge Activity
[2020-01-01 18:09] VITALS: BP 112/78; PULSE 75; TEMP 98
== END 2020-01-01 19:54 | disposition home or self-care (01) ==
LOC: JER 14:15
PROC: 3E033NZ Introduction of Analgesics, Hypnotics, Sedatives into Peripheral Vein, Percutaneous Approach (ICD-10-PCS; principal; 2020-01-01)
DX: R11.2 Nausea with vomiting, unspecified (principal)
CPT/HCPCS: 36415; 80053; 81003; 85025; 87086; 99285-25

== ENCOUNTER 2020-11-30 15:59 | Emergency (ER) | payer OTHER ==
[2020-11-30 16:06] VITALS: BP 130/84; PULSE 78; TEMP 98.7; BMI 30.4
[2020-11-30] MEDS ORDERED: diazePAM 5 MG TABLET PO ONE (16:57)
[2020-11-30] MEDS ORDERED: LIDOCAINE 5% TOPICAL PATCH TP ONE (16:57)
[2020-11-30] MEDS ORDERED: KETOROLAC TROMETHAMINE 30 MG/1 ML VIAL IM ONE (16:57)
[2020-11-30] MEDS ORDERED: LIDOCAINE 5% TOPICAL PATCH ONE (17:01)
[2020-11-30] MEDS ORDERED: KETOROLAC TROMETHAMINE 30 MG/1 ML VIAL ONE (17:02)
[2020-11-30] MEDS ORDERED: diazePAM 5 MG TABLET ONE (17:02)
[2020-11-30 17:43] LABS: HCG,QUALITATIVE URINE Negative
[2020-11-30 17:47] LABS: EPI CELLS >36 /uL (0-25.1); HYALINE CASTS 20 /uL (0-3.1); PH,URINE 5.5 (5.0-8.0); URINE APPEARANCE TURBID; URINE BACTERIA 4008 /uL (0-1359); URINE BILIRUBIN NEGATIVE (NEGATIVE); URINE COLOR DK YELLOW; URINE GLUCOSE (UA) NEGATIVE (NEGATIVE); URINE KETONE TRACE (NEGATIVE); URINE LEUK ESTERASE 2+ (NEGATIVE); URINE NITRITE NEGATIVE (NEGATIVE); URINE PROTEIN 1+ (NEGATIVE); URINE WBC 224 /uL (0-25.8)
[2020-11-30 19:55] LABS: URINE RBC 153.2 /uL (0-23.9)
[2020-11-30] MEDS ORDERED: LIDOCAINE PATCH REMOVAL MC ONE (22:00)
== END 2020-11-30 17:58 | disposition home or self-care (01) ==
LOC: JERFT 15:59
PROC: 3E0233Z Introduction of Anti-inflammatory into Muscle, Percutaneous Approach (ICD-10-PCS; principal; 2020-11-30)
DX: M54.5 Low back pain (principal)
CPT/HCPCS: 81003; 84703; 99284-25

== ENCOUNTER 2021-01-10 15:22 | Emergency (ER) | payer OTHER ==
[2021-01-10 15:36] VITALS: BP 110/70; PULSE 114; TEMP 98.6; BMI 33.4
[2021-01-10] MEDS ORDERED: ONDANSETRON *ODT* 4 MG TABLET SL ONE (15:53)
[2021-01-10] MEDS ORDERED: IBUPROFEN 600 MG TABLET (FP) PO ONE ×2 (15:53→16:08)
[2021-01-10] MEDS ORDERED: ONDANSETRON *ODT* 4 MG TABLET ONE (16:08)
== END 2021-01-10 16:09 | disposition home or self-care (01) ==
LOC: JER 15:22
DX: T88.1XXA Other complications following immunization, not elsewhere classified, initial encounter (principal)
CPT/HCPCS: 99283-25; Q0162

== ENCOUNTER 2021-04-11 15:31 | Emergency (ER) | payer OTHER ==
[2021-04-11 15:41] VITALS: BP 134/75; PULSE 91; TEMP 98.3; BMI 34.9
[2021-04-11 16:29] LABS: EPI CELLS >36 /uL (0-25.1); HYALINE CASTS 2 /uL (0-3.1); PH,URINE 6.5 (5.0-8.0); URINE APPEARANCE CLEAR; URINE BACTERIA 1404 /uL (0-1359); URINE BILIRUBIN NEGATIVE (NEGATIVE); URINE COLOR YELLOW; URINE GLUCOSE (UA) NEGATIVE (NEGATIVE); URINE KETONE NEGATIVE (NEGATIVE); URINE LEUK ESTERASE 1+ (NEGATIVE); URINE NITRITE NEGATIVE (NEGATIVE); URINE PROTEIN NEGATIVE (NEGATIVE); URINE RBC 52 /uL (0-23.9); URINE WBC 55 /uL (0-25.8)
[2021-04-11 16:42] LABS: HCG,QUALITATIVE URINE Negative
[2021-04-11] MEDS ORDERED: IBUPROFEN 400 MG TABLET (FP) PO ONE ×2 (17:38→18:11)
== END 2021-04-11 18:18 | disposition home or self-care (01) ==
LOC: JER 15:31
DX: R35.0 Frequency of micturition (principal); B34.9 Viral infection, unspecified
CPT/HCPCS: 81003; 84703; 87086; 87804; 87880; 99283-25

== ENCOUNTER 2021-06-01 13:21 | Emergency (ER) | payer OTHER ==
[2021-06-01 14:01] VITALS: BP 145/85; PULSE 108; TEMP 98.9; BMI 33.4
[2021-06-01] MEDS ORDERED: IBUPROFEN 600 MG TABLET (FP) PO ONE ×2 (15:16→15:18)
== END 2021-06-01 17:04 | disposition home or self-care (01) ==
LOC: JER 13:21
DX: J02.9 Acute pharyngitis, unspecified (principal)
CPT/HCPCS: 87070; 87651; 99283-25

== ENCOUNTER 2022-07-16 11:01 | Emergency (ER) | payer OTHER ==
[2022-07-16 11:50] VITALS: BP 114/74; PULSE 75; RESP 20; TEMP 97.7; BMI 34.7
[2022-07-16] MEDS ORDERED: KETOROLAC TROMETHAMINE 30 MG/1 ML VIAL IVPUSH ONE (12:54)
[2022-07-16] MEDS ORDERED: ACETAMINOPHEN 1000 MG/100 ML BAG IVPB ONE (12:54)
[2022-07-16] MEDS ORDERED: SODIUM CHLORIDE 0.9% 500 ML INFUS.BAG IV ONE (12:54)
[2022-07-16] MEDS ORDERED: METOCLOPRAMIDE HCL INJECTION 10 MG/2 ML VIAL IVPUSH ONE (12:55)
[2022-07-16] MEDS ORDERED: ACETAMINOPHEN INJECTION 100 ML IVPB ONE (13:04)
[2022-07-16] MEDS ORDERED: METOCLOPRAMIDE HCL INJECTION 10 MG/2 ML VIAL ONE (13:04)
[2022-07-16] MEDS ORDERED: KETOROLAC TROMETHAMINE 30 MG/1 ML VIAL ONE (13:05)
[2022-07-16 14:06] LABS: BASO % 0.5 % (0-2.0); EOS % 1.4 % (0-4.5); HEMATOCRIT 39.8 % (32.4-45.2); HEMOGLOBIN 13.5 GM/dL (10.7-15.3); MCH 29.3 pg (25.7-33.7); MCHC 33.9 g/dl (32.0-36.0); MEAN CELL VOLUME 86.3 fl (80-96); MEAN PLT VOLUME 8.2 fl (7.5-11.1); MONO % 7.2 % (3.8-10.2); NEUT % 67.9 % (42.8-82.8); PLATELET COUNT 188 10^3/uL (134-434); RBC 4.61 M/mm3 (3.60-5.2); RDW 13.2 % (11.6-15.6); WHITE BLOOD COUNT 8.6 K/mm3 (4.0-10.0)
[2022-07-16 14:18] LABS: CALCIUM 9.1 mg/dL (8.5-10.1); MAGNESIUM 2.2 mg/dL (1.8-2.4)
[2022-07-16 14:21] LABS: CREATININE 0.6 mg/dL (0.55-1.3)
[2022-07-16 14:23] LABS: BILIRUBIN,TOTAL 0.4 mg/dL (0.2-1); TOT PROT 7.4 g/dl (6.4-8.2)
== END 2022-07-16 15:54 | disposition home or self-care (01) ==
LOC: JER 11:01
PROC: 3E033GC Introduction of Other Therapeutic Substance into Peripheral Vein, Percutaneous Approach (ICD-10-PCS; principal; 2022-07-16)
DX: G43.009 Migraine without aura, not intractable, without status migrainosus (principal)
CPT/HCPCS: 36415; 70450-TC; 80053; 83735; 84443; 85025; 93005; 93010; 99285-25

== ENCOUNTER 2022-08-04 20:50 | Emergency (ER) | payer OTHER ==
[2022-08-04 20:56] VITALS: BP 106/63; PULSE 80; RESP 17; TEMP 98; BMI 33.4
[2022-08-04 23:03] LABS: EPI CELLS >36 /uL (0-25.1); HCG,QUALITATIVE URINE Negative; HYALINE CASTS 4 /uL (0-3.1); URINE APPEARANCE CLOUDY; URINE BACTERIA 1419 /uL (0-1359); URINE BILIRUBIN NEGATIVE (NEGATIVE); URINE COLOR DK YELLOW; URINE GLUCOSE (UA) NEGATIVE (NEGATIVE); URINE KETONE 1+ (NEGATIVE); URINE LEUK ESTERASE 1+ (NEGATIVE); URINE NITRITE NEGATIVE (NEGATIVE); URINE PROTEIN TRACE (NEGATIVE); URINE RBC 42 /uL (0-23.9); URINE WBC 57 /uL (0-25.8)
[2022-08-04] MEDS ORDERED: LORazepam 2 MG TABLET PO ONE (23:10)
[2022-08-04] MEDS ORDERED: NITROFURANTOIN MACROCRYSTAL 50 MG CAPSULE (FP) PO ONE (23:15)
[2022-08-04] MEDS ORDERED: LORazepam 1 MG TABLET ONE (23:19)
[2022-08-04] MEDS ORDERED: NITROFURANTOIN MACROCRYSTAL 50 MG CAPSULE (FP) ONE (23:19)
== END 2022-08-05 00:07 | disposition home or self-care (01) ==
LOC: JERFT 20:50
DX: N39.0 Urinary tract infection, site not specified (principal); F41.9 Anxiety disorder, unspecified
CPT/HCPCS: 81003; 84703; 87086; 93005; 93010; 99284-25

== ENCOUNTER 2022-11-05 18:13 | Emergency (ER) | payer OTHER ==
[2022-11-05 18:28] VITALS: BP 116/79; PULSE 70; RESP 18; TEMP 98.1; BMI 33.4
[2022-11-05] MEDS ORDERED: ACETAMINOPHEN 500 MG TABLET (FP) PO ONE (21:01)
[2022-11-05] MEDS ORDERED: ACETAMINOPHEN 500 MG TABLET (FP) ONE (21:42)
[2022-11-05 22:09] LABS: POTASSIUM 4.1 mmol/L (3.5-5.1)
[2022-11-05 22:11] LABS: ALBUMIN 4.1 g/dl (3.4-5.0); BLOOD UREA NITROGEN 20.5 mg/dL (7-18); CALCIUM 9.6 mg/dL (8.5-10.1)
[2022-11-05 22:14] LABS: CREATININE 0.8 mg/dL (0.55-1.3)
[2022-11-05 22:15] LABS: BASO % 0.5 % (0-2.0); EOS % 1.6 % (0-4.5); HEMATOCRIT 39.7 % (32.4-45.2); HEMOGLOBIN 13.5 GM/dL (10.7-15.3); LYMPH % 23.7 % (8-40); MCH 28.6 pg (25.7-33.7); MEAN CELL VOLUME 84.1 fl (80-96); MEAN PLT VOLUME 7.8 fl (7.5-11.1); MONO % 8.5 % (3.8-10.2); NEUT % 65.7 % (42.8-82.8); PLATELET COUNT 205 10^3/uL (134-434); RBC 4.73 M/mm3 (3.60-5.2); RDW 13.6 % (11.6-15.6); WHITE BLOOD COUNT 8.4 K/mm3 (4.0-10.0)
[2022-11-05 22:16] LABS: BILIRUBIN,TOTAL 0.4 mg/dL (0.2-1); TOT PROT 7.9 g/dl (6.4-8.2)
[2022-11-05] MEDS ORDERED: LORazepam 1 MG TABLET PO ONE (22:43)
[2022-11-05] MEDS ORDERED: KETOROLAC TROMETHAMINE 30 MG/1 ML VIAL IVPUSH ONE (22:43)
== END 2022-11-05 22:58 | disposition home or self-care (01) ==
LOC: JER 18:13
DX: F41.9 Anxiety disorder, unspecified (principal); R00.2 Palpitations; M25.519 Pain in unspecified shoulder
CPT/HCPCS: 36415; 71046-TC-FY; 80053; 84443; 84484; 84703; 85025; 93005; 93010; 99285-25

== ENCOUNTER 2023-01-13 09:26 | Emergency (ER) | payer OTHER ==
[2023-01-13 09:38] VITALS: BP 119/83; PULSE 84; RESP 18; TEMP 97.6; BMI 33.4
[2023-01-13] MEDS ORDERED: ACETAMINOPHEN 500 MG TABLET (FP) PO ONE (10:29)
[2023-01-13] MEDS ORDERED: LIDOCAINE 5% TOPICAL PATCH TP ONE (10:29)
[2023-01-13] MEDS ORDERED: ACETAMINOPHEN 325 MG TABLET (FP) ONE (11:17)
[2023-01-13] MEDS ORDERED: LIDOCAINE 5% TOPICAL PATCH ONE (11:17)
[2023-01-13 12:10] LABS: BASO % 0.6 % (0-2.0); EOS % 1.4 % (0-4.5); HEMATOCRIT 40.2 % (32.4-45.2); HEMOGLOBIN 13.9 GM/dL (10.7-15.3); LYMPH % 19.3 % (8-40); MCHC 34.6 g/dl (32.0-36.0); MEAN CELL VOLUME 83.7 fl (80-96); MEAN PLT VOLUME 8.2 fl (7.5-11.1); MONO % 7.1 % (3.8-10.2); NEUT % 71.6 % (42.8-82.8); PLATELET COUNT 190 10^3/uL (134-434); RBC 4.81 M/mm3 (3.60-5.2); RDW 13.3 % (11.6-15.6); WHITE BLOOD COUNT 6.2 K/mm3 (4.0-10.0)
[2023-01-13 12:32] LABS: BLOOD UREA NITROGEN 10.5 mg/dL (7-18); CALCIUM 9.5 mg/dL (8.5-10.1); MAGNESIUM 2.1 mg/dL (1.8-2.4)
[2023-01-13 12:36] LABS: CREATININE 0.7 mg/dL (0.55-1.3); PHOSPHOROUS 3.4 mg/dL (2.5-4.9)
[2023-01-13 15:00] LABS: EPI CELLS >36 /uL (0-25.1); HYALINE CASTS 6 /uL (0-3.1); PH,URINE 5.5 (5.0-8.0); URINE APPEARANCE CLOUDY; URINE BACTERIA 6205 /uL (0-1359); URINE BILIRUBIN NEGATIVE (NEGATIVE); URINE COLOR DK YELLOW; URINE GLUCOSE (UA) NEGATIVE (NEGATIVE); URINE KETONE TRACE (NEGATIVE); URINE LEUK ESTERASE 1+ (NEGATIVE); URINE NITRITE NEGATIVE (NEGATIVE); URINE PROTEIN TRACE (NEGATIVE); URINE UROBILINOGEN 0.2 mg/dL (0.2-1.0); URINE WBC 437 /uL (0-25.8)
[2023-01-13 15:08] LABS: URINE RBC 99.3 /uL (0-23.9)
[2023-01-13] MEDS ORDERED: LIDOCAINE PATCH REMOVAL MC SCH (22:00)
== END 2023-01-13 14:53 | disposition home or self-care (01) ==
LOC: JER 09:26
DX: M79.601 Pain in right arm (principal); M79.602 Pain in left arm; R20.2 Paresthesia of skin; R11.0 Nausea
CPT/HCPCS: 36415; 72125-TC; 80048; 81003; 83735; 84100; 84703; 85025; 87086; 87186; 99284-25

== ENCOUNTER 2023-03-15 23:36 | Emergency (ER) | payer OTHER ==
[2023-03-15 23:41] VITALS: BP 123/76; PULSE 76; RESP 18; TEMP 98.1; BMI 36.5
[2023-03-16] MEDS ORDERED: PANTOPRAZOLE SODIUM 40 MG VIAL IVPUSH ONE (00:24)
[2023-03-16] MEDS ORDERED: MAG HYDROX/AL HYDROX/SIMETH -MYLANTA- ORAL SUSPENSION PO ONE (00:25)
[2023-03-16] MEDS ORDERED: ONDANSETRON 4 MG/2 ML VIAL IVPUSH ONE (00:26)
[2023-03-16] MEDS ORDERED: SODIUM CHLORIDE 0.9% 500 ML INFUS.BAG IV ONE (00:26)
[2023-03-16] MEDS ORDERED: MAG HYDROX/AL HYDROX/SIMETH 30 ML UNIT-DOSE CUP ONE (00:39)
[2023-03-16] MEDS ORDERED: ONDANSETRON 4 MG/2 ML VIAL ONE (00:39)
[2023-03-16] MEDS ORDERED: PANTOPRAZOLE SODIUM 40 MG VIAL ONE (00:41)
[2023-03-16 00:42] LABS: BASO % 0.6 % (0-2.0); EOS % 1.5 % (0-4.5); HEMATOCRIT 40.6 % (32.4-45.2); HEMOGLOBIN 14.1 GM/dL (10.7-15.3); LYMPH % 28.8 % (8-40); MCH 29.3 pg (25.7-33.7); MCHC 34.7 g/dl (32.0-36.0); MEAN CELL VOLUME 84.4 fl (80-96); MEAN PLT VOLUME 7.5 fl (7.5-11.1); MONO % 6.9 % (3.8-10.2); NEUT % 62.2 % (42.8-82.8); PLATELET COUNT 205 10^3/uL (134-434); RBC 4.81 M/mm3 (3.60-5.2); RDW 14.2 % (11.6-15.6); WHITE BLOOD COUNT 7.3 K/mm3 (4.0-10.0)
[2023-03-16 01:22] LABS: PH,URINE 5.5 (5.0-8.0); URINE APPEARANCE Clear; URINE BILIRUBIN Negative (NEGATIVE); URINE COLOR Yellow; URINE GLUCOSE (UA) Negative (NEGATIVE); URINE KETONE Negative (NEGATIVE); URINE LEUK ESTERASE Trace (NEGATIVE); URINE NITRITE Negative (NEGATIVE); URINE PROTEIN Negative (NEGATIVE); URINE UROBILINOGEN 0.2 mg/dL (0.2-1.0)
[2023-03-16 01:28] LABS: BLOOD UREA NITROGEN 16.6 mg/dL (7-18)
[2023-03-16 01:31] LABS: CREATININE 0.9 mg/dL (0.55-1.3)
[2023-03-16 01:32] LABS: BILIRUBIN,TOTAL 0.2 mg/dL (0.2-1)
[2023-03-16 01:33] LABS: TOT PROT 7.8 g/dl (6.4-8.2)
[2023-03-16 01:38] LABS: HCG,QUALITATIVE URINE Negative
[2023-03-16 01:47] LABS: EPI CELLS 42.8 /uL (0-25.1); HYALINE CASTS 0.43 /uL (0-3.1); URINE BACTERIA 1213.4 /uL (0-1359); URINE RBC 23.5 /uL (0-23.9); URINE WBC 68.1 /uL (0-25.8)
[2023-03-16] MEDS ORDERED: NITROFURANTOIN MACROCRYSTAL 50 MG CAPSULE (FP) ONE (02:06)
[2023-03-16] MEDS ORDERED: NITROFURANTOIN MACROCRYSTAL 50 MG CAPSULE (FP) PO SCH (02:15)
== END 2023-03-16 02:14 | disposition home or self-care (01) ==
LOC: JER 23:36
PROC: 3E033GC Introduction of Other Therapeutic Substance into Peripheral Vein, Percutaneous Approach (ICD-10-PCS; principal; 2023-03-16)
PROC: 3E033GC Introduction of Other Therapeutic Substance into Peripheral Vein, Percutaneous Approach (ICD-10-PCS; 2023-03-16)
DX: R10.13 Epigastric pain (principal); N39.0 Urinary tract infection, site not specified
CPT/HCPCS: 36415; 76705-TC; 80053; 81003; 83690; 84703; 85025; 99284-25

== ENCOUNTER 2023-03-17 13:03 | Emergency (ER) | payer OTHER ==
[2023-03-17 13:10] VITALS: BP 107/74; PULSE 102; RESP 18; TEMP 97.7; BMI 36.5
[2023-03-17] MEDS ORDERED: CEPHALEXIN MONOHYDRATE 500 MG CAPSULE (UD) PO ONE ×2 (13:14→14:45)
[2023-03-17] MEDS ORDERED: PHENAZOPYRIDINE HCL 100 MG TABLET (FP) PO ONE (13:14)
[2023-03-17] MEDS ORDERED: PHENAZOPYRIDINE HCL 100 MG TABLET (FP) ONE (13:19)
[2023-03-17 14:59] LABS: URINE APPEARANCE Clear; URINE BILIRUBIN Negative (NEGATIVE); URINE COLOR Yellow; URINE GLUCOSE (UA) Negative (NEGATIVE); URINE KETONE Trace (NEGATIVE); URINE LEUK ESTERASE 2+ (NEGATIVE); URINE NITRITE Negative (NEGATIVE); URINE PROTEIN Negative (NEGATIVE); URINE UROBILINOGEN 0.2 mg/dL (0.2-1.0)
[2023-03-17 15:42] LABS: EPI CELLS 41 /uL (0-25.1); HYALINE CASTS 1 /uL (0-3.1); URINE BACTERIA 2331 /uL (0-1359); URINE RBC 46 /uL (0-23.9); URINE WBC 133 /uL (0-25.8)
== END 2023-03-17 13:26 | disposition home or self-care (01) ==
LOC: JER 13:03
DX: N30.01 Acute cystitis with hematuria (principal)
CPT/HCPCS: 81003; 87086; 99283-25